=== PATIENT | female | born 1985 | race Caucasian/White ===

== ENCOUNTER 2017-04-21 19:23 | Emergency (ER) | payer MEDICAID, OTHER ==
[~2017-04-21] VITALS: Ht 165.1 cm; Wt 112.0 kg
[2017-04-21 19:52] VITALS: Ht 165.1 cm; Wt 112.0 kg
--- NOTE | 2017-04-21 22:15 | ERD ---
ER Documentation Chief Complaint Date/Time DATE: 04/21/17 TIME: 22:11 Chief Complaint sent by urgent care for abnormal ekg and cp HPI 32-year-old female presents emergency department for left-sided chest pain that started around 10 AM. Stated that the pain is described as sharp that radiates to her left arm. Stated that the pain is not reproducing. LMP: Stated it was last February. A0. Denies headache, dizziness, blurry vision, neck pain, foot pain, difficulty swallowing, abdominal pain, nausea, vomiting, constipation, diarrhea, urinary symptoms, or possibility , loss of bowel bladder control, recent long travel, recent exposure to any illness, recent antibiotic use in the last 3 months, fever, chills. No known drug allergies. Past medical history of hyperlipidemia, vertigo. Denies surgical history. 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 She also stated that she leaves on a prison. Denies smoking , use of alcoholic beverages, use of illegal drugs. Home medication: Risperidone, duloxetine. Atorvastatin. Magnesium. Amitriptyline. Sumatriptan. Meclizine. ROS All systems reviewed and are negative except as per history of present illness. Medications Home Meds Active Scripts Cyclobenzaprine Hcl* (Cyclobenzaprine Hcl*) 10 Mg Tablet, 10 MG PO Q12 Y for MUSCLE SPASMS, #15 TAB Prov:LAURA POSADA F 04/22/17 Ibuprofen* (Motrin*) 800 Mg Tab, 800 MG PO Q8 Y for PAIN AND OR ELEVATED TEMP, # 20 TAB Prov:LAURA POSADA F 04/22/17 Allergies Allergies: Coded Allergies: No Known Allergy (Unverified , 04/21/17) PMhx/Soc Medical and Surgical Hx: pt denies Medical Hx, pt denies Surgical Hx History of Surgery: No Anesthesia Reaction: No Hx Neurological Disorder: No Hx Respiratory Disorders: No Hx Cardiac Disorders: No Hx Psychiatric Problems: No Hx Miscellaneous Medical Probl: No Hx Alcohol Use: No Hx Substance Use: No Hx Tobacco Use: No Smoking Status: Never smoker Physical Exam Vitals Vital Signs Date Time Temp Pulse Resp B/P Pulse Ox O2 Delivery O2 Flow Rate FiO2 04/22/17 01:02 99 20 136/77 99 Room Air 04/21/17 19:52 98.9 82 18 132/74 99 Physical Exam Const: [] Head: Atraumatic Eyes: Normal Conjunctiva ENT: Normal External Ears, Nose and Mouth. Neck: Full range of motion..~ No meningismus. Resp: Clear to auscultation bilaterally Cardio: Regular rate and rhythm, no murmurs Abd: Soft, non tender, non distended. Normal bowel sounds Skin: No petechiae or rashes Back: No midline or flank tenderness Ext: No cyanosis, or edema Neur: Awake and alert Psych: Normal Mood and Affect Result Diagram: 04/21/17225104/21/172251 Results 24 hrs Laboratory Tests Test 04/21/17 22:29 04/21/17 22:52 Urine Color YELLOW Urine Clarity SLIGHTLY CLOUDY Urine pH 5.0 Urine Specific [place] 1.031 Urine Ketones 1+mg/dL Urine Nitrite NEGATIVEmg/dL Urine Bilirubin NEGATIVEmg/dL Urine Urobilinogen NEGATIVEmg/dL Urine Leukocyte Esterase NEGATIVELeu/ul Urine Microscopic RBC 2/HPF Urine Microscopic WBC 5/HPF Urine Squamous Epithelial Cells FEW/HPF Urine Bacteria FEW/HPF Urine Mucus MODERATE/HPF Urine Hemoglobin NEGATIVEmg/dL Urine Glucose NEGATIVEmg/dL Urine Total Protein 3+mg/dl Urine Opiates Screen Negative Urine Barbiturates Negative Urine Amphetamines Screen Negative Urine Benzodiazepines Screen Negative Urine Cocaine Screen Negative Urine Cannabinoids Negative White Blood Count 12.110^3/ul Red Blood Count 4.4510^6/ul Hemoglobin 13.9g/dl Hematocrit 40.8% Mean Corpuscular Volume 91.7fl Mean Corpuscular Hemoglobin 31.2pg Mean Corpuscular Hemoglobin Concent 34.1g/dl Red Cell Distribution Width 13.0% Platelet Count 89279^3/UL Mean Platelet Volume 10.2fl Neutrophils % 54.1% Lymphocytes % 37.0% Monocytes % 6.9% Eosinophils % 1.3% Basophils % 0.5% Nucleated Red Blood Cells % 0.0/100WBC Neutrophils # 6.510^3/ul Lymphocytes # 4.510^3/ul Monocytes # 0.810^3/ul Eosinophils # 0.210^3/ul Basophils # 0.110^3/ul Nucleated Red Blood Cells # 0.010^3/ul Prothrombin Time 12.5Sec Prothrombin Time Ratio 1.0 INR International Normalized Ratio 0.93 Activated Partial Thromboplast Time 27.9Sec Sodium Level 139mmol/L Potassium Level 3.8mmol/L Chloride Level 103mmol/L Carbon Dioxide Level 26mmol/L Anion Gap 14 Blood Urea Nitrogen 11mg/dl Creatinine 0.66mg/dl Glucose Level 79mg/dl Calcium Level 9.8mg/dl Total Bilirubin 0.3mg/dl Direct Bilirubin 0.00mg/dl Indirect Bilirubin 0.3mg/dl Aspartate Amino Transf (AST/SGOT) 41IU/L Alanine Aminotransferase (ALT/SGPT) 43IU/L Alkaline Phosphatase 82IU/L Troponin I < 0.012ng/ml Total Protein 7.9g/dl Albumin 4.0g/dl Globulin 3.90g/dl Albumin/Globulin Ratio 1.02 Current Medications Medications (Trade) Dose Ordered Sig/Nikunj Route PRN Reason Start Time Stop Time Status Last Admin Dose Admin Aspirin (Aspirin) 325 mg ONCE ONCE PO 04/21/17 22:30 04/21/17 22:31 DC 04/21/17 22:28 Ketorolac Tromethamine (Toradol) 60 mg ONCE STAT IM 04/22/17 00:40 04/22/17 00:41 DC Procedures/MDM 32-year-old female presents emergency department for left-sided chest pain that started around 10 AM. Stated that the pain is described as sharp that radiates to her left arm. Stated that the pain is not reproducing. LMP: Stated it was last February. A0. Denies headache, dizziness, blurry vision, neck pain, foot pain, difficulty swallowing, abdominal pain, nausea, vomiting, constipation, diarrhea, urinary symptoms, or possibility , loss of bowel bladder control, recent long travel, recent exposure to any illness, recent antibiotic use in the last 3 months, fever, chills. No known drug allergies. Past medical history of hyperlipidemia, vertigo. Denies surgical history. 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 Denies smoking , use of alcoholic beverages, use of illegal drugs. Home medication: Risperidone, duloxetine. Atorvastatin. Magnesium. Amitriptyline. Sumatriptan. Meclizine. Physical exam: Unremarkable. Disease process was explained to the patient. She verbalized understanding and agreed with the diagnostic test, treatment, plan of care. EKG: Normal sinus rhythm with a ventricular rate of 74 bpm. Blood works: Reviewed. Chest x-ray: No evidence for acute cardiopulmonary disease. Treatment: Aspirin. Reevaluation: Denies chest pain. Respirations even and unlabored. Lung sounds are clear to auscultation. There is no right upper/right lower/epigastric/left upper/left lower abdominal tenderness and light and deep palpation. Negative and psoas sign. Negative on Rovsing's sign. Negative Edgard sign. No CVA tenderness. Differential diagnosis: Acute myocardial infarction versus acute coronary syndrome versus pneumonia versus chest wall pain Final diagnosis: Chest wall pain Prescription: Motrin. Follow-up with primary care physician the next 24-48 hours. PCP to refer patient to naturopathic oncology provider if symptoms persist in the next 48-72 hours. Back here in the emergency department for any new symptoms or any worsening of symptoms. All questions and concerns are answered. Patient verbalized understanding and agreed with the plan of care. Hemodynamically stable on discharge. Departure Diagnosis: Primary Impression: Chest wall pain Condition: Stable Additional Instructions: Follow-up with primary care physician the next 24-48 hours. PCP to refer patient to naturopathic oncology provider if symptoms persist in the next 48-72 hours. Back here in the emergency department for any new symptoms or any worsening of symptoms. All questions and concerns are answered. Patient verbalized understanding and agreed with the plan of care. LAURA POSADA Apr 21, 2017 22:15
[2017-04-21] MEDS ORDERED: ASPIRIN 325 MG TAB PO ONE (22:30)
[2017-04-21 23:28] LABS: BASOPHIL # 0.1 10^3/ul (0.0-0.1); BASOPHILS % 0.5 % (0.0-2.0); EOSINOPHILS # 0.2 10^3/ul (0.0-0.5); EOSINOPHILS % 1.3 % (0.0-7.0); HEMATOCRIT 40.8 % (37.0-47.0); HEMOGLOBIN 13.9 g/dl (12.0-16.0); LYMPHOCYTES # 4.5 10^3/ul (0.8-2.9); MEAN CORPUSCULAR HEMOGLOBIN 31.2 pg (29.0-33.0); MEAN CORPUSCULAR HGB CONC 34.1 g/dl (32.0-37.0); MEAN CORPUSCULAR VOLUME 91.7 fl (82.0-101.0); MEAN PLATELET VOLUME 10.2 fl (7.4-10.4); MONOCYTE # 0.8 10^3/ul (0.3-0.9); MONOCYTES % 6.9 % (0.0-11.0); NEUTROPHIL # 6.5 10^3/ul (1.6-7.5); NEUTROPHILS % 54.1 % (39.0-77.0); PLATELET COUNT 421 10^3/UL (140-415); RED BLOOD COUNT 4.45 10^6/ul (4.20-5.40); WHITE BLOOD COUNT 12.1 10^3/ul (4.8-10.8)
--- NOTE | 2017-04-21 23:35 | RADRPT ---
PROCEDURE: XR Chest. CLINICAL INDICATION: Chest pain. TECHNIQUE: PA and Lateral views of the chest were obtained. COMPARISON: There are no similar studies submitted for comparison. FINDINGS: The heart is normal in size. The lungs are clear without evidence of infiltrate. There is no pleural effusion. No pneumothorax is identified. The osseous structures are intact. IMPRESSION: No evidence for acute cardiopulmonary disease. RPTAT: HIKT .Stevie Owens MD, MD Date Time Electronically viewed and signed by .Stevie Owens MD, on 04/21/2017 23:35 .T/
[2017-04-21 23:47] LABS: INR 0.93; PROTIME 12.5 Sec (12.2-14.2)
[2017-04-21 23:48] LABS: PARTIAL THROMBOPLASTIN TIME 27.9 Sec (25.0-35.0)
[2017-04-21 23:50] LABS: ALANINE AMINOTRANSFERASE 43 IU/L (13-69); ALBUMIN/GLOBULIN RATIO 1.02; ALKALINE PHOSPHATASE 82 IU/L (42-121); ANION GAP 14 (8-16); ASPARTATE AMINO TRANSFERASE 41 IU/L (15-46); BILIRUBIN,INDIRECT 0.3 mg/dl (0-1.1); BILIRUBIN,TOTAL 0.3 mg/dl (0.2-1.3); BLOOD UREA NITROGEN 11 mg/dl (7-20); CALCIUM 9.8 mg/dl (8.4-10.2); CARBON DIOXIDE 26 mmol/L (21-31); CHLORIDE 103 mmol/L (97-110); CREATININE 0.66 mg/dl (0.44-1.00); GLUCOSE 79 mg/dl (70-220); SODIUM 139 mmol/L (135-144); TOTAL PROTEIN 7.9 g/dl (6.1-8.1)
[2017-04-21 23:51] LABS: ADD UMIC YES; UR ASCORBIC ACID 40 mg/dL (NEGATIVE); UR BACTERIA FEW /HPF (NONE SEEN); UR BILIRUBIN (Dip) NEGATIVE (NEGATIVE); UR BLOOD (Dip) NEGATIVE (NEGATIVE); UR CLARITY SLIGHTLY CLOUDY (CLEAR); UR COLOR YELLOW (YELLOW); UR GLUCOSE (Dip) NEGATIVE (NEGATIVE); UR KETONES (Dip) 1+ mg/dL (NEGATIVE); UR LEUKOCYTE ESTERASE (Dip) NEGATIVE Leu/ul (NEGATIVE); UR MUCUS MODERATE /HPF (NONE SEEN); UR NITRITE (Dip) NEGATIVE (NEGATIVE); UR RBC 2 /HPF (0-5); UR SPECIFIC GRAVITY (Dip) 1.031 (1.003-1.030); UR SQUAMOUS EPITHELIAL CELL FEW /HPF (FEW); UR TOTAL PROTEIN (Dip) 3+ mg/dl (NEGATIVE); UR UROBILINOGEN (Dip) NEGATIVE (NEGATIVE)
[2017-04-21 23:54] LABS: POTASSIUM 3.8 mmol/L (3.5-5.1)
[2017-04-22 00:04] LABS: TROPONIN-I < 0.012 ng/ml (0.00-0.12)
[2017-04-22 00:04] LABS: BARBITURATES Negative (NEGATIVE); BENZODIAZEPINES Negative (NEGATIVE); CANNABINOIDS Negative (NEGATIVE)
[2017-04-22 00:05] LABS: COCAINE Negative (NEGATIVE); OPIATES Negative (NEGATIVE)
[2017-04-22] MEDS ORDERED: KETOROLAC 60 MG INJ IM STA (00:40)
[2017-04-22] MEDS ORDERED: IBUP800T25 PO (00:41)
[2017-04-22] MEDS ORDERED: CYCL-319 PO (00:42)
[2017-04-22 01:02] VITALS: BP 136/77; PULSE 99; RESP 20
== END 2017-04-22 01:02 | disposition home or self-care (01) ==
LOC: FTE 19:23
DX: R07.89 Other chest pain (principal)
CPT/HCPCS: 71020; 80053; 80307; 81001; 84484; 85025; 85610; 85730; 93005; Z7502; Z7610; J1885